=== PATIENT | male | born 1955 | race Caucasian/White ===

== ENCOUNTER 2016-09-23 18:45 | Emergency (ER) | payer MEDICARE, MEDICAID ==
[2016-09-23] MEDS ORDERED: Albuterol/Ipratropium 3.0-0.5 MG/3 ML Neb Soln NEB ONE (19:03)
[2016-09-23] MEDS ORDERED: methylPREDNISolone Sodium Succinate 125 MG/2 ML SDV IM ONE (20:10)
--- NOTE | 2016-09-23 20:12 | EDM.PDOC ---
ED HISTORY OF PRESENT ILLNESS - General Chief Complaint: Respiratory Problem Stated Complaint: wheezing Time Seen by Provider: 09/23/16 18:55 Source of Information: Reports: EMS notes reviewed, group home records, RN, RN notes reviewed History Limitations: Reports: Language barrier - History of Present Illness INITIAL COMMENTS - FREE TEXT/NARRATIVE: Patient is brought to the ED at [facility] via EMS for respiratory breathing problems and wheezing. Unable to fully assess due to mental handicap. Information obtain from senior living staff. Patient started having wheezing and breathing difficulty earlier today. Staff at [facility] felt symptoms were getting worse and family requested further evaluation. Symptom Onset Date: 09/23/16 - Related Data Allergies/ADRs: Allergies Allergy/AdvReac Type Severity Reaction Status Date / Time No Known Allergies Allergy Verified 09/23/16 18:59 Past Medical History Neurological History: Reports: Alzheimers disease Social & Family History - Tobacco Use Smoking Status *Q: Never Smoker Second Hand Smoke Exposure: No ED ROS GENERAL - Review of Systems Review Of Systems: See Below Constitutional: Denies: fever, chills, weakness Respiratory: Reports: Wheezing Skin: Reports: no symptoms Neurological: Reports: Other (JEWEL) ED EXAM, GENERAL - Physical Exam Exam: See Below Free Text/Narrative:: Unable to fully assess, patient is uncooperative Exam Limited By: Altered mental status General Appearance: alert, no apparent distress Respiratory/Chest: wheezing, accessory muscle use Cardiovascular: regular rate, rhythm GI/Abdominal: normal bowel sounds, soft, non tender Neurological: other (JEWEL) Skin Exam: Warm, Dry Course - Vital Signs Last Recorded V/S: Last Vital Signs Temp 36.4 C 09/23/16 18:59 Pulse 78 09/23/16 18:59 Resp 28 H 09/23/16 18:59 BP Pulse Ox 98 09/23/16 18:59 - Orders/Labs/Meds Orders: Active Orders 24 hr Category Date Time Status RT Aerosol Therapy [RC] ASDIRECTED Care 09/23/16 19:03 Active Chest 1V Frontal [CR] Stat Exams 09/23/16 19:03 Taken Meds: Medications Discontinued Medications Generic Name Dose Route Start Last Admin Trade Name Freq PRN Reason Stop Dose Admin Albuterol/Ipratropium 3 ml 09/23/16 19:03 Duoneb 3.0-0.5 Mg/3 Ml NEB 09/23/16 19:04 ONETIME ONE Departure - Departure Time of Disposition: 20:11 Disposition: DC/Tfer to SNF 03 Condition: good Clinical Impression: Wheezing on auscultation Instructions: Bronchospasm, Adult Referrals: Danis Valencia MD [Primary Care Provider] - Forms: ED Department Discharge Additional Instructions: 1. Stay well hydrated and rest 2. Take medications for the full coarse, even if symptoms are getting better 3. See your Primary as symptoms warrant - Problem List Review Problem List Initiated/Reviewed/Updated: Yes - My Orders Last 24 Hours: My Active Orders 09/23/16 19:03 RT Aerosol Therapy [RC] ASDIRECTED Chest 1V Frontal [CR] Stat - Assessment/Plan Last 24 Hours: My Active Orders 09/23/16 19:03 RT Aerosol Therapy [RC] ASDIRECTED Chest 1V Frontal [CR] Stat
[2016-09-23] MEDS ORDERED: Take Home: prednisoLONE Syrup 5 MG/5 ML 30 ML, 1 Bottle Pack PO ONE (20:14)
== END 2016-09-23 20:40 ==
LOC: VM.ED 18:45
DX: R06.2 Wheezing (principal)
CPT/HCPCS: 71010; 94640; 96372; 99285; A9270; J2930; 99284-GF

== ENCOUNTER 2016-10-20 17:37 | Inpatient (IN) | payer MEDICARE, MEDICAID ==
[2016-10-20] MEDS ORDERED: Sodium Chloride 0.9% 10 ML Syringe FLUSH PRN (17:47)
[2016-10-20] MEDS ORDERED: methylPREDNISolone Sodium Succinate 125 MG/2 ML SDV IM ONE (17:58)
[2016-10-20] MEDS ORDERED: methylPREDNISolone Sodium Succinate 125 MG/2 ML SDV IVPUSH ONE (18:21)
[2016-10-20 18:54] LABS: CHLORIDE,CL 103 mmol/L (98-107); SODIUM,NA 144 mmol/L (136-145)
[2016-10-20] MEDS ORDERED: Piperacillin/Tazobactam 4.5 GM in Sodium Chloride 0.9% 100 ML IV ONE (19:03)
[2016-10-20] MEDS ORDERED: Sodium Chloride 0.9% 1,000 ML IV ONE (19:35)
[2016-10-20] MEDS ORDERED: Ondansetron 4 MG Tab.DIS PO PRN (19:52)
[2016-10-20] MEDS ORDERED: Albuterol/Ipratropium 3.0-0.5 MG/3 ML Neb Soln NEB PRN (19:52)
[2016-10-20] MEDS ORDERED: Magnesium Hydroxide 400 MG/5 ML Susp 30 ML Cup PO PRN (19:52)
[2016-10-20] MEDS ORDERED: Acetaminophen 325 MG Tab PO PRN (19:52)
--- NOTE | 2016-10-20 20:22 | PCM.HP ---
H&P History of Present Illness - General Date of Service: 10/20/16 Admit Problem/Dx: Admission Diagnosis/Problem Admission Diagnosis/Problem Aspiration pneumonia Lactic Acidosis Fevers Dehydration Source of Information: intermediate records, RN, RN notes reviewed History Limitations: Reports: Other - History of Present Illness Initial Comments - Free Text/Narative: 60-year-old white male with a past medical history of Down syndrome, COPD, Alzheimer's, viral hepatitis, who was seen earlier today in the emergency room at [facility] for suspected aspiration pneumonia. According to the alf records, the patient started having respiratory difficulty around 5 PM this evening. Vital signs are stable, however the patient did have a fever of 101.7. Therefore the patient was brought to the emergency room at [facility] for further evaluation. While in the emergency room the patient remained hemodynamically stable. The patient did have a fever of 102 in the ER. The patient had a normal white blood cell count, however his lactic acid was 5.5. His pro BNP was elevated at over 700. The patient's chest x-ray did not show any acute process. Given the lactic acidosis and fevers, the patient is being admitted to observation for rule out aspiration pneumonia, lactic acidosis , fevers, and dehydration. Onset of Symptoms: Reports: today Symptom Onset Date: 10/20/16 Symptom Onset Time: 17:00 - Related Data Allergies/Adverse Reactions: Allergies Allergy/AdvReac Type Severity Reaction Status Date / Time No Known Allergies Allergy Verified 10/20/16 19:59 Home Medications: Home Meds Acetaminophen [Tylenol] 650 mg PO Q4H PRN 10/20/16 [History] Bisacodyl 10 mg RECTAL DAILY PRN 10/20/16 [History] Bisacodyl [Dulcolax] 5 mg PO DAILY PRN 10/20/16 [History] Docusate Sodium [Colace] 100 mg PO DAILY 10/20/16 [History] Mineral Oil/I-Prop Myr/Water [Minerin] 1 applic TOP BID 10/20/16 [History] Multivitamin [Multi-Vitamin Daily] 1 tab PO DAILY 10/20/16 [History] Polyethylene Glycol 3350 [MiraLAX] 17 gm PO DAILY 10/20/16 [History] Past Medical History HEENT History: Reports: Cataract Cardiovascular History: Reports: Other (see below) Other Cardiovascular History: nonrheumatic aortic valve insufficiency Respiratory History: Reports: COPD Gastrointestinal History: Reports: Chronic constipation, Hepatitis, Other (see below) Other Gastrointestinal History: viral hepatitis Musculoskeletal History: Reports: Osteoarthritis Neurological History: Reports: Alzheimers disease, Other (see below) Other Neuro History: dementia; Downs syndrome Psychiatric History: Reports: Developmental delay, Other (see below) Other Psychiatric History: Downs syndrome Social & Family History - Family History Family Medical History: Noncontributory - Tobacco Use Smoking Status *Q: Never Smoker Tobacco Use Within Last Twelve Months: No Second Hand Smoke Exposure: No - Caffeine Use Caffeine Use: Reports: None - Alcohol Use Alcohol Use History: No - Recreational Drug Use Recreational Drug Use: No - Living Situation & Occupation Living situation: Reports: single, extended care facility Occupation: disabled H&P Review of Systems - Review of Systems: Review Of Systems: ROS reveals no pertinent complaints other than HPI. Exam - Exam Exam: See Below - Vital Signs Vital Signs: Last Vital Signs Temp 37.7 C 10/20/16 20:11 Pulse 113 H 10/20/16 17:37 Resp 24 H 10/20/16 17:37 BP 116/71 10/20/16 17:37 Pulse Ox 92 L 10/20/16 17:37 Weight: 45.359 kg - Exam Quality Assessment: supplemental oxygen, urinary catheter, DVT prophylaxis General: alert HEENT: Conjunctiva clear, Pupils equal, Pupils reactive Neck: supple Lungs: Normal respiratory effort, Decreased breath sounds, Rhonchi Cardiovascular: regular rate, regular rhythm, normal S1, normal S2 Abdomen: normal bowel sounds, soft. No: tenderness Peripheral Pulses: 2+: radial (L), radial (R) Skin: warm, dry, intact Neuro Extensive - Mental Status: alert - Patient Data Result Diagrams: 10/20/16 18:11 10/20/16 18:11 *Q Meaningful Use (ADM) - VTE *Q VTE Criteria *Q: VTE Mechanical Contraindications *Q: DVT, Confirmed - VTE Risk Assess *Q Each Risk Factor Represents 2 Points: Age 60 - 74 Years Total Score 2 Point Risk Factors: 2 - Stroke *Q Stroke Criteria *Q: - AMI *Q AMI Criteria *Q: - Problem List (1) Aspiration pneumonia due to food (regurgitated) SNOMED Code(s): 15484784 ICD Code: J69.0 - PNEUMONITIS DUE TO INHALATION OF FOOD AND VOMIT Status: Acute Priority: High Current Visit: Yes Onset Date: ~10/20/16 Qualifiers: Laterality: unspecified laterality (2) Lactic acidosis SNOMED Code(s): 67337620 ICD Code: E87.2 - ACIDOSIS Status: Acute Priority: Medium Current Visit : Yes Onset Date: ~10/20/16 (3) Fever SNOMED Code(s): 685323141 ICD Code: R50.9 - FEVER, UNSPECIFIED Status: Acute Priority: High Current Visit: Yes Onset Date: ~10/20/16 Qualifiers: Fever type: unspecified Qualified Code(s): R50.9 - Fever, unspecified (4) Dehydration SNOMED Code(s): 45720256 ICD Code: E86.0 - DEHYDRATION Status: Acute Priority: High Current Visit: Yes Onset Date: ~10/20/16 Problem List Initiated/Reviewed/Updated: Yes Orders Last 24hrs: Active Orders 24 hr Category Date Time Status Patient Status [ADT] Routine ADT 10/20/16 19:53 Active Kyle Catheter Insertion [Insert Urinary Catheter] [OM. Care 10/20/16 20:15 Ordered PC] Q24H Height and Weight [RC] UPON Care 10/20/16 19:52 Active Intake and Output [RC] QSHIFT Care 10/20/16 19:55 Active May Shower [RC] ASDIRECTED Care 10/20/16 19:52 Active Oxygen Therapy [RC] PRN Care 10/20/16 19:53 Active RT Aerosol Therapy [RC] ASDIRECTED Care 10/20/16 19:57 Active RT Aerosol Therapy [RC] ASDIRECTED Care 10/20/16 20:11 Active Turn and Reposition [RC] Q2HR Care 10/20/16 20:03 Active Up to Chair [RC] ASDIRECTED Care 10/20/16 19:52 Active Urinary Catheter Assessment [RC] ASDIRECTED Care 10/20/16 19:52 Active Urinary Catheter Assessment [RC] ASDIRECTED Care 10/20/16 20:04 Active VTE/DVT Education [RC] PER UNIT ROUTINE Care 10/20/16 19:53 Active Vital Signs [RC] Q4H Care 10/20/16 19:53 Active Respiratory Care Assess and Treatment [CONS] Routine Cons 10/20/16 19:52 Active Mechanical Soft Diet [DIET] Diet 10/20/16 Breakfast Active BASIC METABOLIC PANEL,BMP [CHEM] Routine Lab 10/21/16 05:11 Ordered CBC WITH AUTO DIFF [HEME] Routine Lab 10/21/16 05:11 Ordered CRP [C-REACTIVE PROTEIN] [CHEM] Routine Lab 10/21/16 05:11 Ordered CULTURE SPUTUM + SMEAR [RM] Stat Lab 10/20/16 19:52 Uncollected CULTURE URINE [RM] Stat Lab 10/20/16 19:52 Uncollected LACTIC ACID [CHEM] Routine Lab 10/21/16 05:11 Ordered UA W/MICROSCOPIC [URIN] Stat Lab 10/20/16 19:52 Uncollected Acetaminophen [Tylenol] Med 10/20/16 19:52 Active 650 mg PO Q4H PRN Albuterol/Ipratropium [DuoNeb 3.0-0.5 MG/3 ML] Med 10/20/16 19:52 Active 3 ml NEB Q2H PRN Albuterol/Ipratropium [DuoNeb 3.0-0.5 MG/3 ML] Med 10/20/16 21:00 Ordered 3 ml NEB Q4HRRT Magnesium Hydroxide [Milk of Magnesia] Med 10/20/16 19:52 Active 30 ml PO Q12H PRN Ondansetron [Zofran ODT] Med 10/20/16 19:52 Active 4 mg PO Q6H PRN Piperacillin/Tazobactam [Zosyn] 4.5 gm Med 10/20/16 20:00 Active Sodium Chloride 0.9% [Normal Saline] 100 ml IV Q6H Sodium Chloride 0.9% [Normal Saline] 1,000 ml Med 10/20/16 19:35 Active IV .BOLUS Sodium Chloride 0.9% [Normal Saline] 1,000 ml Med 10/20/16 20:00 Active IV ASDIRECTED Resuscitation Status Routine Resus Stat 10/20/16 20:09 Ordered Medication Orders Acetaminophen (Tylenol) 650 mg PO Q4H PRN PRN Reason: Pain (Mild 1-3)/fever Albuterol/Ipratropium (Duoneb 3.0-0.5 Mg/3 Ml) 3 ml NEB Q2H PRN PRN Reason: dyspnea/wheezing Albuterol/Ipratropium (Duoneb 3.0-0.5 Mg/3 Ml) 3 ml NEB Q4HRRT JUANCHO Sodium Chloride (Normal Saline) 1,000 mls @ 999 mls/hr IV .BOLUS ONE Stop: 10/20/16 20:35 Last Admin: 10/20/16 19:35 Dose: 999 mls/hr Sodium Chloride (Normal Saline) 1,000 mls @ 100 mls/hr IV ASDIRECTED JUANCHO Piperacillin Sod/Tazobactam (Sod 4.5 gm/ Sodium Chloride) 100 mls @ 200 mls/hr IV Q6H JUANCHO Magnesium Hydroxide (Milk Of Magnesia) 30 ml PO Q12H PRN PRN Reason: Constipation Ondansetron HCl (Zofran Odt) 4 mg PO Q6H PRN PRN Reason: nausea, able to take PO Sodium Chloride (Saline Flush) 10 ml FLUSH ASDIRECTED PRN PRN Reason: Keep Vein Open Assessment/Plan Comment:: A 60-year-old white male with a past medical history of Down's syndrome, viral hepatitis, COPD, Alzheimer's disease, admitted to [facility] observation unit for aspiration pneumonia, lactic acidosis, fever, dehydration. The patient will be placed on IV fluid for hydration. The patient will be started on Zosyn IV every 6 hours. The patient will also have a dual nebs every 4 hours scheduled , and every 2 hours as needed. No IV steroids will be given. The patient will be on aspiration precautions. We will continue his regular diet of mechanical soft. We will recheck a CBC, BMP, lactic acid in the morning. The patient is a cold 2. I did discuss CODE STATUS with the patient's sister Ervin, who I gave an update to the a telephone.
[2016-10-20] MEDS ORDERED: Bisacodyl 10 MG Supp RECTAL PRN (21:50)
[2016-10-20] MEDS: Piperacillin/Tazobactam 4.5 GM in Sodium Chloride 0.9% 100 ML IV SCH (22:03)
[2016-10-20] MEDS: Sodium Chloride 0.9% 1,000 ML IV SCH (22:03)
[2016-10-20] MEDS: Albuterol/Ipratropium 3.0-0.5 MG/3 ML Neb Soln NEB SCH (22:03)
[2016-10-21] MEDS: Albuterol/Ipratropium 3.0-0.5 MG/3 ML Neb Soln NEB SCH ×6 (00:25→18:20)
[2016-10-21] MEDS: Piperacillin/Tazobactam 4.5 GM in Sodium Chloride 0.9% 100 ML IV SCH ×3 (02:51→13:50)
[2016-10-21] MEDS: Sodium Chloride 0.9% 1,000 ML IV SCH ×2 (07:54→19:09)
[2016-10-21] MEDS ORDERED: Docusate Sodium 100 MG Cap PO SCH (08:00)
[2016-10-21 08:47] LABS: CHLORIDE,CL 106 mmol/L (98-107); SODIUM,NA 143 mmol/L (136-145)
[2016-10-21] MEDS ORDERED: LORazepam 2 MG/ML MDV IVPUSH ONE (12:55)
[2016-10-21] MEDS ORDERED: Iopamidol 612 MG/ML 100 ML Bottle IVPUSH ONE (13:47)
[2016-10-21] MEDS ORDERED: Sodium Chloride 0.9% 100 ML IV ONE (13:47)
[2016-10-21 17:28] VITALS: BP 94/41
--- NOTE | 2016-10-21 20:07 | DISCH ---
ADMITTING PROVIDER: Maldonado Baez PA-C. TRANSFERRING PROVIDER: Maldonado Baez PA-C. ADMITTING DIAGNOSIS: Fever of unknown origin. DISCHARGE DIAGNOSES: 1. Sepsis. 2. Possible button battery ingestion. HOSPITAL COURSE: The patient was admitted to our facility yesterday afternoon with fever of unknown origin. The patient began experiencing increased work of breathing and fever shortly after having dinner yesterday evening. Staff was concerned that the patient had aspirated as he does have a history of recurrent aspiration pneumonia. On arrival to the emergency room, the patient was found to be hemodynamically stable. Initial chest x-ray and repeat chest x-ray today were negative for acute pathology. The patient also did have blood cultures x2 drawn and 3 out of the 4 bottles were positive for gram negative rods or E coli, and the patient did have an elevated lactic acid yesterday. He was started on IV Zosyn 4.5 g every 6 hours. The patient's white count did elevate to 20.3 today from 9.0 yesterday. He did have 6% bands yesterday as well and a left shift with 89% neutrophils. A decision was made to perform a CT scan of the patient's chest, abdomen, and pelvis with IV contrast to determine the possible cause of his sepsis. CT examination did reveal a metallic object in the patient's right middle abdomen region. Radiologist at [facility] in [place] felt as though the object was possibly a button battery versus a coin. Decision was made to transfer the patient to [facility] for further workup and evaluation to determine the cause of the patient's sepsis and to determine if the patient had ingested a button battery and if the two problems had any connection. PHYSICAL EXAMINATION AT DISCHARGE: Vital Signs: At discharge blood pressure is 94/41, pulse rate 71, temperature is 36.6, respiratory rate is 18, O2 saturations 92%. Skin: Warm, pink, and dry. HEENT: Mouth, oral mucosa is moist. Lungs: Clear to auscultation. Heart: Regular rate and rhythm. Abdomen: Soft and not obviously tender. To note, the patient does have severe developmental disabilities and is unable to state if he is experiencing any increased discomfort and is resistive to care. Neurologic: The patient moves all extremities appropriately. He is nonverbal. LABORATORY DATA: This morning WBCs 20.3, hemoglobin is 12.5, platelets are 210. Yesterday PT was 11.5, INR was 1.0. Chemistry this morning; sodium is 143, potassium is 3.8, chloride is 106, bicarb is 28, BUN is 13, creatinine is 1.0, creatinine clearance is 50.40. GFR is greater than 60. Glucose is 195. Lactic acid is 3.4, down from 5.5 yesterday. Calcium is 8.3. The patient's troponins were negative. C-reactive protein elevated at 22.1. Urinalysis did reveal trace of protein, trace of occult blood, negative leukocyte esterase, and nitrates. Blood cultures x2 again were negative and 3/4 bottles were positive for E coli. CT scan of the patient's chest, abdomen, and pelvis as well as other plain films were pushed to [facility]. Accepting provider, Ayo Marinelli MD at [facility] Emergency Room. DISPOSITION: The patient will be transported by ALS ground ambulance. We will continue supportive care en route. We will continue IV Zosyn if he is receiving this during transport. The patient is a do not resuscitate. MWK: 10/21/2016 18:40:10 MODL: 10/21/2016 19:56:19 /[id number]
--- NOTE | 2016-10-23 08:50 | ER ---
Date of Service: 10/20/2016 SUBJECTIVE: Roberth presents to the emergency room with respiratory distress. The patient has Down syndrome and is a resident at the [facility]. Staff states that the patient has been experiencing respiratory distress since this evening. It started shortly after he had started eating. The patient was seen in our facility on 07/26 by Smith Cervantes and with respiratory distress. It was felt that was secondary to bronchospasm and he was given nebulized treatment and started on a course of oral steroids. He did well after he was discharged and apparently had completely recovered from that. PAST MEDICAL HISTORY: 1. Down syndrome. 2. Dementia. 3. History of aspiration. 4. Chronic constipation. MEDICATIONS: 1. Acetaminophen 650 mg p.o. q.4 hours p.r.n. 2. Dulcolax 5 mg p.o. daily p.r.n. 3. Mineral oil suppository. 4. Colace. 5. Multivitamin. 6. MiraLAX. 7. Bisacodyl. ALLERGIES: NKDA. REVIEW OF SYSTEMS: Unobtainable. PHYSICAL EXAMINATION: General: This is a 60-year-old male patient, who does not appear to be in any obvious distress. Vital Signs: On admission blood pressure was 116/71, heart rate was 113, temperature was 38.7, respiratory rate 24, O2 saturations 92% on room air. Skin: Warm, pink, and dry. HEENT: Head is normocephalic and atraumatic. Mouth, oral mucosa is moist. Lungs: Bit diminished in the bases with rhonchi heard more in the mid right lung base. Heart: He does have a grade 3 holosystolic heart murmur. Abdomen: Soft, nontender. There is no hepatosplenomegaly noted. There is no masses noted. Extremities: Without edema. Neurologic: He is awake, resistive to care which according to staff at the halfway is about his normal level of mentation. He is not experiencing any obvious decreased level of consciousness according to staff. LABORATORY DATA: WBC is 9.0, hemoglobin is 14.3, platelets are 212, he did have 89% neutrophils, 6% bands, 5% lymphs. Coags PT is 11.5, INR is 1.0. Chemistry, sodium is 144, potassium is 4.0, chloride is 103, bicarb is 34, BUN is 13, creatinine is 1.0. GFR is greater than 60. Glucose is 154, lactic acid elevated at 5.5, calcium is 8.8, corrected calcium is 9.76, total bilirubin is 0.8, AST is 25, ALT is 33, alkaline phosphatase is 134, CK is 44, troponin is less than 0.017. BNP elevated at 716. Total protein is 7.3 and albumin is 2.8. EMERGENCY ROOM COURSE: The patient had been given a DuoNeb breathing treatment prehospitally. An IV access was established. The patient was given Zosyn 4.5 g IV. Blood cultures x2 were obtained and are pending. The patient was also given Solu-Medrol 125 mg IV on admission. He was not experiencing any respiratory distress during the remainder of his stay here in the emergency room. Portable chest x-ray was obtained. There was no obvious infiltrate noted. ASSESSMENT: Possible aspiration pneumonia. PLAN: Decision was made to admit the patient as he does have an elevated lactic acid and is febrile. He is not showing signs of aspiration at this time radiographically, but he does have diminished breath sounds, so we will repeat his chest x-ray tomorrow. We will start him on DuoNeb breathing treatments. Blood cultures x2 were obtained and are pending. His urinalysis is also pending as well. We will repeat labs and chest x- ray in the morning. The patient is a code level 2. Did discuss findings with the staff at the [facility]. MWK: 10/20/2016 20:28:14 MODL: 10/20/2016 21:17:21 /[id number]
== END 2016-10-21 19:10 | disposition home or self-care (01) | DRG 871 ==
LOC: VM.ED 17:37 → VM.MS 19:06 → OBSVTOIN 10-21 09:50
PROVIDERS: ADMIT Family Medicine; ATTEND Family Medicine
DX: E87.2 Acidosis (principal); A41.51 Sepsis due to Escherichia coli [E. coli]; J69.0 Pneumonitis due to inhalation of food and vomit; T18.8XXA Foreign body in other parts of alimentary tract, initial encounter; E86.0 Dehydration; Q90.9 Down syndrome, unspecified; J44.9 Chronic obstructive pulmonary disease, unspecified; G30.9 Alzheimer's disease, unspecified; Z87.01 Personal history of pneumonia (recurrent); F02.80 Dementia in other diseases classified elsewhere, unspecified severity, without behavioral disturbance, psychotic disturbance, mood disturbance, and anxiety; M19.90 Unspecified osteoarthritis, unspecified site; K59.09 Other constipation; R06.00 Dyspnea, unspecified
CPT/HCPCS: 36415 ×2; 71010; 80048; 80053; 82550; 83605 ×2; 83880; 84484; 85025 ×2; 85610; 86140; 87040 ×2; 87804 ×2; 96361 ×2; 96365; 96366; 96375; 99285 ×2; A9270; G0378; J2543 ×3; J2930; J7030 ×3; J7050 ×3; 71260; 74000; 74177; 81001; 87077; 87086; 87186; J2060; Q9967